=== PATIENT | female | born 1955 | race Caucasian/White ===

== ENCOUNTER 2017-11-09 09:23 | Day surgery (SDC) | payer BC | END 2017-11-09 11:58 | disposition home or self-care (01) | LOC: GIL 09:23 | DX: K29.50 Unspecified chronic gastritis without bleeding (principal); K64.8 Other hemorrhoids; K63.89 Other specified diseases of intestine; K44.9 Diaphragmatic hernia without obstruction or gangrene | CPT/HCPCS: 43239; 88305; 88312 ==

== ENCOUNTER 2017-11-14 11:17 | Emergency (ER) | payer BC | END 2017-11-14 11:36 | disposition home or self-care (01) | LOC: E/R 11:17 | DX: H93.11 Tinnitus, right ear (principal) | CPT/HCPCS: 99282 ==